=== PATIENT | female | born 1945 | race Caucasian/White ===

== ENCOUNTER → 2017-01-17 | Outpatient (CLI) | payer OTHER ==
[~2017-01-17] MED LIST: CO Q10 PO; FISH OIL PO; IRON PO; LIPITOR80 MG PO; LOPRESSOR25 MG PO; MEDROL DOSEPAK4 MG PO; NEXIUM40 MG PO; TRIMOX500 MG PO; VICODIN PO; VITAMIN A PO; VITAMIN B12 PO; VITAMIN D PO; VITAMIN E PO; VOLTAREN; XANAX0.5 MG PO
[2017-01-17 13:02] LABS: BASO % 0.3 % (0.0-1.0); EOS # 0.1 10*3/uL (0.0-0.4); EOS % 1.7 % (1.0-4.0); HEMATOCRIT 36.8 % (37.0-47.0); HEMOGLOBIN 11.2 g/dl (12.0-16.0); LYMPH # 2.6 10*3/uL (1.3-4.4); LYMPH % 35.1 % (27.0-41.0); MEAN CORPUSCULAR HGB 24.9 pg (27.0-31.0); MEAN CORPUSCULAR HGB CONC 30.4 g/dl (33.0-37.0); MEAN PLATELET VOLUME 12.1 fl (9.6-12.3); MONO # 0.5 10*3/uL (0.1-1.0); MONO % 6.4 % (3.0-9.0); NEUT # 4.2 10*3/uL (2.3-7.9); PLATELET COUNT AUTOMATED 231 10*3/uL (130-400); RED BLOOD COUNT 4.49 10*6/uL (4.10-5.10); RED CELL DISTRI WIDTH 16.9 % (0-14.5); WHITE BLOOD COUNT 7.5 10*3/uL (4.8-10.8)
[2017-01-17 13:24] LABS: ALBUMIN 3.9 gm/dl (3.1-4.5); BILIRUBIN, TOTAL 0.4 mg/dl (0.2-1.0); BUN 19 mg/dl (7-24); CARBON DIOXIDE 31 mmol/L (21-32); CHLORIDE 107 mmol/L (98-107); EST GLOM FILT AFRICAN AMERICAN > 60 ml/min; GLUCOSE 109 mg/dL (65-99); POTASSIUM 4.7 mmol/L (3.5-5.1); SGOT/AST 16 IU/L (3-35); SGPT/ALT 25 U/L (12-78); SODIUM 141 mmol/L (136-145); TOTAL PROTEIN 6.9 gm/dL (6.4-8.2)
[2017-01-17 13:33] LABS: ALKALINE PHOSPHATASE 95 U/L (45-117)
== END | disposition home or self-care (01) ==
LOC: LAB 12:37
PROVIDERS: Internal Medicine
DX: G47.19 Other hypersomnia (principal)

== ENCOUNTER 2017-03-28 15:42 | Inpatient (IN) | payer OTHER ==
[~2017-03-28] VITALS: Ht 152.4 cm; Wt 71.2 kg
--- NOTE | ~2017-03-28 | PROC NOTE ---
[place], [place] PROCEDURE NOTE [facility]: [id number] UNIT #: [id number] ROOM: 422 DOCTOR: FAISAL CHINCHILLA MD BIRTHDATE: [birth year] DOS: 03/29/2017 PREOPERATIVE DIAGNOSES: Anemia, lower gastrointestinal bleed. POSTOPERATIVE DIAGNOSES: Anemia, lower gastrointestinal bleed. PROCEDURE: Esophagogastroduodenoscopy. ENDOSCOPIST: Faisal Chinchilla MD HEALTH AND PHYSICAL EDUCATION TEACHER: MS3. ANESTHESIA: MAC. INDICATIONS: This is a 72-year-old lady with a past history of peptic ulcer disease who was admitted with anemia and shortness of breath. It was decided to take the patient to the endoscopy suite for an EGD. The procedure and its complications were explained to the patient in detail and she agreed to proceed. DESCRIPTION OF PROCEDURE: After identifying the patient, the patient was brought to the endoscopy suite and placed in the left lateral position. After time-out procedure was called, IV sedation was administered and a bite block was placed. An adult gastroscope was now introduced into the mouth and advanced sequentially into the pharynx, esophagus. The adult gastroscope was now passed into the stomach and there was no evidence of any bleeding or ulceration that could be visualized. These findings were confirmed upon retroflexion of the scope as well. The scope was then passed into the first and second parts of the duodenum. There was found to be mild duodenitis, but no active bleeding. Upon withdrawal of the scope, there was found to be small sized hiatal hernia. Again there was no bleeding seen in the entire length of the esophagus of the stomach. The scope was then withdrawn and the patient was taken to the recovery room in stable fashion. Dr. Faisal Chinchilla, the attending endoscopist, was present throughout the operative case. There were no complications. Faisal Chinchilla MD CM:PROCNOTE:PROCEDURE NOTE [id number] FAISAL CHINCHILLA MD
--- NOTE | ~2017-03-28 | PROC NOTE ---
[place], [place] PROCEDURE NOTE [id number] UN[facility] #: [id number] ROOM: 422 DOCTOR: FAISAL CHINCHILLA MD BIRTHDATE: [birth year] DOS: 03/30/2017 PREOPERATIVE DIAGNOSIS: Lower gastrointestinal bleed. POSTOPERATIVE DIAGNOSES: Lower gastrointestinal bleed, diverticulosis. PROCEDURE: Colonoscopy. ENDOSCOPIST: Faisal Chinchilla MD [employer] SUPERVISOR: MS3. ANESTHESIA: MAC. INDICATIONS: This is a 72-year-old lady admitted lower GI bleed who has a normal EGD yesterday who is here for a colonoscopy. The procedure and its complications were explained to the patient in detail preoperatively. Complications that were discussed included but were not limited to bleeding, missed lesions, colon perforations, and prolonged pain. She agreed to proceed. DESCRIPTION OF PROCEDURE: After identifying the patient, the patient was brought to the endoscopy suite and placed in the left lateral position. After IV sedation was administered, a timeout procedure was called and a digital rectal exam was performed. This was within normal limits. An adult colonoscope was now introduced into the anal canal and advanced sequentially into the rectum, sigmoid colon, descending colon, transverse colon and ascending colon up to the cecum. Upon reaching the cecum, the scope was withdrawn. Total withdrawal time was approximately 6.5 minutes. During the procedure of withdrawal, there was found to be mild sigmoid diverticulosis. Otherwise, there was no evidence of any polyps or ulceration or any blood that could be visualized in the entirety of the colon. The scope was withdrawn and the patient was taken to the recovery room in stable fashion. There were no complications. Dr. Faisal Chinchilla, the attending endoscopist, was present throughout the operating case. Faisal Chinchilla MD CM:PROCNOTE:PROCEDURE NOTE 1102 [id number] FAISAL CHINCHILLA MD
[~2017-03-28 15:42] MED LIST changes: -VITAMIN D PO; +VITAMIN D350000 UNIT PO
[2017-03-28 15:57] VITALS: BP 157/87
[2017-03-28 16:08] LABS: BASO % 0.2 % (0.0-1.0); EOS # 0.2 10*3/uL (0.0-0.4); EOS % 1.7 % (1.0-4.0); HEMOGLOBIN 6.7 g/dl (12.0-16.0); LYMPH # 2.5 10*3/uL (1.3-4.4); LYMPH % 27.5 % (27.0-41.0); MEAN CELL VOLUME 79.9 fl (81.0-99.0); MEAN CORPUSCULAR HGB 23.3 pg (27.0-31.0); MEAN CORPUSCULAR HGB CONC 29.1 g/dl (33.0-37.0); MEAN PLATELET VOLUME 11.7 fl (9.6-12.3); MONO # 0.7 10*3/uL (0.1-1.0); MONO % 7.1 % (3.0-9.0); NEUT # 5.8 10*3/uL (2.3-7.9); NEUT % 63.2 % (47.0-73.0); PLATELET COUNT AUTOMATED 243 10*3/uL (130-400); RED BLOOD COUNT 2.88 10*6/uL (4.10-5.10); RED CELL DISTRI WIDTH 17.2 % (0-14.5); WHITE BLOOD COUNT 9.2 10*3/uL (4.8-10.8)
[2017-03-28 16:16] LABS: PROTHROMBIN TIME 10.2 SECONDS (9.0-12.4)
[2017-03-28 16:24] LABS: ALBUMIN 3.6 gm/dl (3.1-4.5); ALKALINE PHOSPHATASE 96 U/L (45-117); BILIRUBIN, TOTAL 0.3 mg/dl (0.2-1.0); BUN 18 mg/dl (7-24); CARBON DIOXIDE 26 mmol/L (21-32); CHLORIDE 108 mmol/L (98-107); EST GLOM FILT AFRICAN AMERICAN > 60 ml/min; GLUCOSE 107 mg/dL (65-99); POTASSIUM 4.6 mmol/L (3.5-5.1); SGOT/AST 15 IU/L (3-35); SGPT/ALT 20 U/L (12-78); SODIUM 142 mmol/L (136-145); TOTAL PROTEIN 6.5 gm/dL (6.4-8.2)
[2017-03-28 16:26] LABS: TROPONIN I < 0.015 ng/ml (<0.045)
[2017-03-28] MEDS ORDERED: ZANTAC 150150 MG PO (18:23)
[2017-03-28 18:53] VITALS: BP 154/57
[2017-03-28 20:20] VITALS: BP 140/72
[2017-03-28 20:35] VITALS: BP 149/66
[2017-03-28 20:50] VITALS: BP 122/60
[2017-03-29] VITALS (10 sets, daily range): BP systolic 123–170; BP diastolic 60–99
[2017-03-29 02:02] LABS: BASO % 0.4 % (0.0-1.0); EOS # 0.1 10*3/uL (0.0-0.4); EOS % 1.7 % (1.0-4.0); HEMATOCRIT 31.6 % (37.0-47.0); HEMOGLOBIN 9.8 g/dl (12.0-16.0); LYMPH # 2.4 10*3/uL (1.3-4.4); LYMPH % 33.2 % (27.0-41.0); MEAN CELL VOLUME 83.6 fl (81.0-99.0); MEAN CORPUSCULAR HGB 25.9 pg (27.0-31.0); MEAN PLATELET VOLUME 11.6 fl (9.6-12.3); MONO # 0.4 10*3/uL (0.1-1.0); MONO % 5.4 % (3.0-9.0); NEUT # 4.2 10*3/uL (2.3-7.9); NEUT % 58.9 % (47.0-73.0); PLATELET COUNT AUTOMATED 195 10*3/uL (130-400); RED BLOOD COUNT 3.78 10*6/uL (4.10-5.10); RED CELL DISTRI WIDTH 17.7 % (0-14.5); WHITE BLOOD COUNT 7.2 10*3/uL (4.8-10.8)
[2017-03-29 05:44] LABS: ALBUMIN 3.2 gm/dl (3.1-4.5); CHLORIDE 110 mmol/L (98-107); SODIUM 144 mmol/L (136-145)
[2017-03-29 05:54] LABS: ALKALINE PHOSPHATASE 79 U/L (45-117); BILIRUBIN, TOTAL 1.1 mg/dl (0.2-1.0); BUN 15 mg/dl (7-24); CARBON DIOXIDE 25 mmol/L (21-32); CHOLESTEROL 143 mg/dL (<200); EST GLOM FILT AFRICAN AMERICAN > 60 ml/min; GLUCOSE 92 mg/dL (65-99); HDL CHOLESTEROL 36 mg/dl (40-60); LDL CHOLESTEROL 81 mg/dL (9-159); PHOSPHOROUS 4.4 mg/dL (2.5-4.9); SGOT/AST 15 IU/L (3-35); SGPT/ALT 16 U/L (12-78); TOTAL PROTEIN 5.9 gm/dL (6.4-8.2); TRIGLYCERIDES 130 mg/dl (<150); VLDL CHOLESTEROL 26 mg/dL (6-40)
[2017-03-29 06:00] LABS: BASO % 0.2 % (0.0-1.0); EOS # 0.1 10*3/uL (0.0-0.4); EOS % 2.1 % (1.0-4.0); HEMATOCRIT 31.4 % (37.0-47.0); HEMOGLOBIN 9.8 g/dl (12.0-16.0); LYMPH # 2.1 10*3/uL (1.3-4.4); LYMPH % 33.8 % (27.0-41.0); MEAN CELL VOLUME 83.5 fl (81.0-99.0); MEAN CORPUSCULAR HGB 26.1 pg (27.0-31.0); MEAN CORPUSCULAR HGB CONC 31.2 g/dl (33.0-37.0); MEAN PLATELET VOLUME 12.5 fl (9.6-12.3); MONO # 0.4 10*3/uL (0.1-1.0); MONO % 6.3 % (3.0-9.0); NEUT # 3.5 10*3/uL (2.3-7.9); NEUT % 57.3 % (47.0-73.0); PLATELET COUNT AUTOMATED 187 10*3/uL (130-400); RED BLOOD COUNT 3.76 10*6/uL (4.10-5.10); RED CELL DISTRI WIDTH 17.8 % (0-14.5); WHITE BLOOD COUNT 6.2 10*3/uL (4.8-10.8)
[2017-03-29 06:37] LABS: HEMOGLOBIN A1c 6.6 % (4.8-5.6)
[2017-03-29 07:48] LABS: PROTHROMBIN TIME 10.4 SECONDS (9.0-12.4)
[2017-03-29 16:48] LABS: VITAMIN D, 25-HYDROXY 38.4 ng/mL (30-100)
[2017-03-29 16:49] LABS: FOLIC ACID 12.77 ng/mL (>5.38)
[2017-03-30] VITALS (7 sets, daily range): BP systolic 116–173; BP diastolic 69–93
[2017-03-30 07:00] LABS: BASO % 0.5 % (0.0-1.0); EOS # 0.2 10*3/uL (0.0-0.4); EOS % 2.8 % (1.0-4.0); HEMATOCRIT 36.3 % (37.0-47.0); HEMOGLOBIN 11.4 g/dl (12.0-16.0); LYMPH # 1.3 10*3/uL (1.3-4.4); LYMPH % 21.5 % (27.0-41.0); MEAN CELL VOLUME 82.7 fl (81.0-99.0); MEAN CORPUSCULAR HGB CONC 31.4 g/dl (33.0-37.0); MEAN PLATELET VOLUME 11.5 fl (9.6-12.3); MONO # 0.5 10*3/uL (0.1-1.0); MONO % 8.2 % (3.0-9.0); NEUT # 4.1 10*3/uL (2.3-7.9); NEUT % 66.7 % (47.0-73.0); PLATELET COUNT AUTOMATED 216 10*3/uL (130-400); RED BLOOD COUNT 4.39 10*6/uL (4.10-5.10); RED CELL DISTRI WIDTH 17.7 % (0-14.5); WHITE BLOOD COUNT 6.1 10*3/uL (4.8-10.8)
[2017-03-30 07:29] LABS: ALBUMIN 3.7 gm/dl (3.1-4.5); BILIRUBIN, TOTAL 1.2 mg/dl (0.2-1.0); BUN 9 mg/dl (7-24); CARBON DIOXIDE 25 mmol/L (21-32); CHLORIDE 109 mmol/L (98-107); EST GLOM FILT AFRICAN AMERICAN > 60 ml/min; GLUCOSE 130 mg/dL (65-99); POTASSIUM 3.3 mmol/L (3.5-5.1); SGOT/AST 18 IU/L (3-35); SGPT/ALT 20 U/L (12-78); SODIUM 140 mmol/L (136-145); TOTAL PROTEIN 6.6 gm/dL (6.4-8.2)
[2017-03-30 07:31] LABS: ALKALINE PHOSPHATASE 90 U/L (45-117)
[2017-03-30] MEDS ORDERED: NORCO 5/325 PO (12:13)
[2017-03-30] MEDS ORDERED: REQUIP0.25 M1 PO (12:13)
[2017-03-30] MEDS ORDERED: XANAX0.25 MG PO (12:13)
== END 2017-03-30 14:37 | disposition home or self-care (01) | DRG 378 ==
LOC: ED 15:42 → 4E 17:16 → EDHOLD 17:16 → 4E 17:37
PROVIDERS: Emergency Medicine; Internal Medicine; Registered Nurse
PROC: 30233N1 Transfusion of Nonautologous Red Blood Cells into Peripheral Vein, Percutaneous Approach (ICD-10-PCS; principal; 2017-03-28)
PROC: 0DJ08ZZ Inspection of Upper Intestinal Tract, Via Natural or Artificial Opening Endoscopic (ICD-10-PCS; 2017-03-29)
PROC: 0DJD8ZZ Inspection of Lower Intestinal Tract, Via Natural or Artificial Opening Endoscopic (ICD-10-PCS; 2017-03-30)
DX: K92.1 Melena (principal); E44.0 Moderate protein-calorie malnutrition; K57.11 Diverticulosis of small intestine without perforation or abscess with bleeding; E87.8 Other disorders of electrolyte and fluid balance, not elsewhere classified; K44.9 Diaphragmatic hernia without obstruction or gangrene; D50.9 Iron deficiency anemia, unspecified; G89.29 Other chronic pain; M54.9 Dorsalgia, unspecified; I10 Essential (primary) hypertension; R07.9 Chest pain, unspecified; E78.5 Hyperlipidemia, unspecified; R73.9 Hyperglycemia, unspecified; F41.9 Anxiety disorder, unspecified; K21.9 Gastro-esophageal reflux disease without esophagitis; Z68.30 Body mass index [BMI] 30.0-30.9, adult; Z95.5 Presence of coronary angioplasty implant and graft; Z82.49 Family history of ischemic heart disease and other diseases of the circulatory system; Z88.8 Allergy status to other drugs, medicaments and biological substances; Z79.899 Other long term (current) drug therapy; K27.9 Peptic ulcer, site unspecified, unspecified as acute or chronic, without hemorrhage or perforation

== ENCOUNTER → 2017-04-13 | Outpatient (CLI) | payer OTHER ==
[~2017-04-13] MED LIST changes: +NORCO 5/325 PO; +REQUIP0.25 M1 PO; +XANAX0.25 MG PO; +ZANTAC 150150 MG PO
[2017-04-13 11:29] LABS: BASO % 0.3 % (0.0-1.0); EOS # 0.1 10*3/uL (0.0-0.4); EOS % 1.6 % (1.0-4.0); HEMOGLOBIN 11.7 g/dl (12.0-16.0); LYMPH # 1.9 10*3/uL (1.3-4.4); LYMPH % 28.1 % (27.0-41.0); MEAN CELL VOLUME 82.4 fl (81.0-99.0); MEAN CORPUSCULAR HGB 25.4 pg (27.0-31.0); MEAN CORPUSCULAR HGB CONC 30.8 g/dl (33.0-37.0); MEAN PLATELET VOLUME 11.3 fl (9.6-12.3); MONO # 0.4 10*3/uL (0.1-1.0); MONO % 5.8 % (3.0-9.0); NEUT # 4.4 10*3/uL (2.3-7.9); NEUT % 63.9 % (47.0-73.0); PLATELET COUNT AUTOMATED 266 10*3/uL (130-400); RED BLOOD COUNT 4.61 10*6/uL (4.10-5.10); RED CELL DISTRI WIDTH 16.7 % (0-14.5); WHITE BLOOD COUNT 6.9 10*3/uL (4.8-10.8)
[2017-04-13 11:56] LABS: ALBUMIN 3.8 gm/dl (3.1-4.5); ALKALINE PHOSPHATASE 116 U/L (45-117); BUN 15 mg/dl (7-24); CHLORIDE 107 mmol/L (98-107); POTASSIUM 4.5 mmol/L (3.5-5.1); SGOT/AST 15 IU/L (3-35); SGPT/ALT 20 U/L (12-78); SODIUM 140 mmol/L (136-145); TOTAL PROTEIN 7.1 gm/dL (6.4-8.2)
== END | disposition home or self-care (01) ==
LOC: LAB 03:38 → RESCLI 03:38
PROVIDERS: Internal Medicine Hospice and Palliative Medicine
DX: I10 Essential (primary) hypertension (principal); D64.9 Anemia, unspecified; K21.9 Gastro-esophageal reflux disease without esophagitis; G25.81 Restless legs syndrome; R13.10 Dysphagia, unspecified; E78.00 Pure hypercholesterolemia, unspecified; Z79.899 Other long term (current) drug therapy

== ENCOUNTER 2017-04-28 15:04 | Inpatient (IN) | payer OTHER ==
[~2017-04-28] VITALS: Ht 152.4 cm; Wt 71.3 kg
--- NOTE | ~2017-04-28 | CON ---
[place], [place] REPORT OF CONSULTATION NAME: MAYRA COTE [facility] #: [id number] UNIT #: [id number] ROOM: 428 DOCTOR: KATHY PEARL MD BIRTHDATE: [birth year] DOS: 04/30/2017 HISTORY OF PRESENT ILLNESS: The patient is a pleasant 72-year-old [place] woman who was seen by her PCP, advised to go to the Emergency Room, was noted to have severe anemia. Recently, she had upper and lower endoscopy done by Dr. Paniagua in March and was doing good. Subsequently, she was admitted and underwent upper endoscopy, which showed gastritis. She continues to have black tarry stools and consulted for further evaluation and management of anemia. PAST MEDICAL HISTORY: Upper and lower endoscopy done by Dr. Paniagua in March, status post another EGD yesterday. The patient has essential hypertension, gastroesophageal reflux disease, hiatal hernia, hyperlipidemia, lumbago, protein-calorie malnutrition, obesity, peptic ulcer disease, restless leg syndrome, vitamin deficiency. PAST SURGICAL HISTORY: Esophageal dilatation, history of coronary artery stent. SOCIAL HISTORY: No smoking, drinking, or drug abuse. FAMILY HISTORY: Father , age unknown. Mother, coronary artery disease, ____ unknown. ALLERGIES: MOBIC. MEDICATIONS: Grant, ____, Requip, Xanax as well as Nexium, vitamin D3, Zantac, ____ Lipitor, Lopressor, ____. REVIEW OF SYSTEMS: CONSTITUTIONAL: No chills. No fatigue. No fever. No loss of appetite. No night sweats. No weakness. No weight loss. HEENT: No trouble swallowing. No loss of smell. No loss of hearing. No double vision. No pain. No discharge. ENT AND RESPIRATORY: No wheeze. No sore throat. No change in voice. No hearing loss. No nose bleed. No cough. No trouble breathing through nose. No shortness of breath. No coughing up blood. No epistaxis. CARDIOVASCULAR: No chest pain. No dizziness. No irregular heartbeat. No leg edema. No pain in legs while walking. No palpitations. No shortness of breath. DERMATOLOGIC: No acne. No hives. No laceration. No mole. No rash. ENDOCRINE: No cold intolerance. No diabetes. No fatigue. No hot flashes. No polydipsia. No polyuria. No urinating frequently. No weight loss. HEMATOLOGIC AND LYMPH: No fatigue. No easy bruising. GASTROENTEROLOGIC: No change in bowel habits. No indigestion. No frequent bloating. No vomiting blood. No abdominal cramping. No nausea. No heartburn. No vomiting. No abdominal pain. No dysphagia. No diarrhea. No constipation. No blood in stool. FEMALE REPRODUCTIVE: No vaginal itching. No difficulty urinating. No heavy periods. No dyspareunia. No sexually active. No dysmenorrhea. No pelvic pain. No breast pain. No nipple discharge. No abnormal vaginal discharge. No hot flashes. [place], [place] REPORT OF CONSULTATION NAME: MAYRA COTE UNIT #: [id number] ROOM: [facility] DOCTOR: KATHY PEARL MD BIRTHDATE: [birth year] MUSCULOSKELETAL: No back pain. No muscle pain or weakness. No neck pain. No tingling/numbness. No swelling/bruising. No osteoporosis treatment. OPTHALMOLOGIC: No double vision. No diminished vision. No loss of vision. UROLOGIC: No dysuria. No frequent nighttime urination. No irregular periods. No pain with urination. No difficulty urinating. No blood in urine. No frequent urination. No urinary incontinence. NEUROLOGIC: No loss of sensation in specific body area. No vertigo. No burning pain in feet. No trouble with balance. No trouble with coordination. No loss of consciousness. No loss of feeling/power. No confusion. No headache. No tingling/numbness. PSYCHOLOGIC: No tinnitus. No headaches. No shortness of breath. No weight decrease. No nausea. No vomiting. No abdominal discomfort. No constipation. No diarrhea. No depression. No anxiety. PHYSICAL EXAMINATION: GENERAL: She is a pleasant woman in no apparent distress, feeling weak and tired. VITAL SIGNS: Stable. She is afebrile. HEENT: Oral mucosa appears intact. The external ears are normal in appearance. Nares are patent without lesions, exudates, erythema, or inflammation. Tongue is symmetrical. Uvula is midline. NECK AND THYROID: Neck supple without palpable masses. Trachea is midline. No thyromegaly. No carotid bruit or JVD. BREASTS: Normal. Nipples unremarkable. No drainage. No lumps felt on either side. HEART: Normal S1, S2, without significant murmur, rub, or gallop. LUNGS: Clear to auscultation and percussion with good air entry bilaterally. The patient is breathing easily without the use of accessory muscles. Diaphragmatic excursions are intact. ABDOMEN: No costovertebral angle tenderness. Soft. No organomegaly or masses. Nontender. No hernias present. Liver and spleen are not palpable. LYMPHATIC: No adenopathy noted in the cervical, supraclavicular, axillary, or inguinal regions. NEUROLGIC: Nonfocal. Oriented to person, place, and time. MENTAL STATUS: Appropriate for mood and affect. PERIPHERAL PULSES: No varicosities. Femoral and pedal pulses are palpable. EXTREMITIES: Without cyanosis, clubbing, or edema. No gross anomalies. LABORATORY DATA: White count 6.7, hemoglobin 8.2, hematocrit 26.9, platelet count of 198,000. Total protein 5.8, albumin 3.0. TIBC 429, iron of 33, saturation 7%. Haptoglobin is pending. B12 is 294, ferritin 6.0, folic acid is 13.42. ASSESSMENT: 1. Iron deficiency anemia secondary to blood loss. 2. The patient was taking iron pills and it caused her upset stomach. 3. Gastrointestinal bleed. 4. Gastroesophageal reflux disease. 5. Status post upper endoscopy which showed gastritis. [place], [place] REPORT OF CONSULTATION NAME: MAYRA COTE UNIT #: [id number] ROOM: [facility] DOCTOR: KATHY PEARL MD BIRTHDATE: [birth year] PLAN: The patient ____ with p.o. iron, will be starting on parenteral iron. Also, advised the cause of GI bleed needs to be addressed. No matter how much iron we give, she is going to lose her iron and hemoglobin and hematocrit are not going to rise. We will wait for Dr. Paniagua's input depending on the further intervention. In the meantime, a hemolytic workup was also ordered. I did discuss with the patient about it, seemed to understand it. Ample time was given to the patient to ask me questions. We will follow. Thanks for consulting and letting me participate in the care of this interesting patient. KATHY PEARL MD CM:CONSTR:REPORT OF CONSULTATION 1133 05/02/17 0042 interface
--- NOTE | ~2017-04-28 | O ---
[place], [place] OPERATIVE NOTE NAME: MAYRA COTE UNIT #: [id number] ROOM: 428 DOCTOR: CHRISTINA OTEROKYLER BIRTHDATE: [birth year] DOS: 04/28/2017 HISTORY OF PRESENT ILLNESS: A 72-year-old patient who has presented with anemia, status post recurrent transfusion. The patient received 2 units yesterday and 1 unit today. PAST MEDICAL HISTORY: Associated with GERD, hiatal hernia, hyperlipidemia, peptic ulcer disease, restless leg, essential hypertension. PAST SURGICAL HISTORY: Esophageal stricture post-dilation, coronary artery disease status post stent. SOCIAL HISTORY: Nonsmoker, nonalcohol consumer. FAMILY HISTORY: Noncontributory. ALLERGIES: MELOXICAM. MEDICATIONS: Medication list has been reviewed. H and H at the time of entry was 8 and 26. Followup H and H was, on the same day, 6 and 24 and her H and H remained again 7.3 and 23 post 1 unit transfusion. INR 0.9. REVIEW OF SYSTEMS: Assessed. PHYSICAL EXAMINATION: Again reassessed. PROCEDURE: Today's procedure, path of investigation is panendoscopy. PREMEDICATION: Versed and Diprivan. SCOPE: Olympus forward-viewing gastroscope Q10 video. REPORT: After putting the patient in the left lateral position and after application of lubricant to the scope, the scope was introduced. Thereafter, under direct visualization, I advanced through the length of the esophagus without difficulty. Relatively large hiatal hernia was noticed. Gastric pouch was entered. Gastritis appreciated. Duodenal bulb, second and third part no evidence of angiodysplastic lesion, no acute source of bleeding. Few small linear erosions in the hiatal sac was noticed. No biopsy obtained after photographic series. Patient extubated, tolerated the procedure well. IMPRESSION: Hiatal hernia, large. Gastritis and gastric erosions. PLAN AND DISCUSSION: The patient has had gastritis and hiatal hernia, which has been assessed on 02/01/2017. She has had colonoscopy and endoscopy done last month by Dr. Marquez and no evidence of active bleeding has been identified. This patient may benefit from outpatient capsule endoscopy to assure there is no [place], [place] OPERATIVE NOTE NAME: MAYRA COTE UNIT #: [id number] ROOM: 428 DOCTOR: CHRISTINA OTERO,KYLER BIRTHDATE: [birth year] acute pathology of the small bowel. This is going to be organized as outpatient. KYLER VASQUEZ MD CM:OPRECORD:OPERATIVE NOTE 1640 30 KYLER VASQUEZ MD 04/29/172230 interface
[2017-04-28 15:11] VITALS: BP 116/70
[2017-04-28 15:54] LABS: BASO % 0.2 % (0.0-1.0); EOS # 0.2 10*3/uL (0.0-0.4); EOS % 2.1 % (1.0-4.0); HEMATOCRIT 24.9 % (37.0-47.0); HEMOGLOBIN 7.6 g/dl (12.0-16.0); LYMPH # 2.2 10*3/uL (1.3-4.4); LYMPH % 26.3 % (27.0-41.0); MEAN CELL VOLUME 82.2 fl (81.0-99.0); MEAN CORPUSCULAR HGB 25.1 pg (27.0-31.0); MEAN CORPUSCULAR HGB CONC 30.5 g/dl (33.0-37.0); MEAN PLATELET VOLUME 11.6 fl (9.6-12.3); MONO # 0.6 10*3/uL (0.1-1.0); MONO % 7.5 % (3.0-9.0); NEUT # 5.2 10*3/uL (2.3-7.9); NEUT % 63.5 % (47.0-73.0); PLATELET COUNT AUTOMATED 248 10*3/uL (130-400); RED BLOOD COUNT 3.03 10*6/uL (4.10-5.10); RED CELL DISTRI WIDTH 17.6 % (0-14.5); WHITE BLOOD COUNT 8.2 10*3/uL (4.8-10.8)
[2017-04-28 15:58] LABS: BILIRUBIN NEGATIVE (NEGATIVE); BLOOD NEGATIVE (NEGATIVE); CLARITY CLEAR (CLEAR); COLOR YELLOW (YELLOW); GLUCOSE NEGATIVE (NEGATIVE); KETONE TRACE (NEGATIVE); LEUKO ESTERASE TRACE (NEGATIVE); NITRITE NEGATIVE (NEGATIVE); PH 5.5 (5.0-9.0); SPECIFIC GRAVITY 1.025 (1.005-1.030); UROBILINOGEN 0.2 E.U./dl (0.2-1.0)
[2017-04-28 16:03] LABS: INTERNATIONAL NORM RATIO 0.9 (2.0-3.5)
[2017-04-28 16:09] LABS: BACTERIA TRACE
[2017-04-28 16:11] LABS: ALBUMIN 3.1 gm/dl (3.1-4.5); ALKALINE PHOSPHATASE 104 U/L (45-117); BUN 18 mg/dl (7-24); CHLORIDE 108 mmol/L (98-107); CREATININE 0.67 mg/dL (0.55-1.02); LIPASE 140 U/L (73-393); POTASSIUM 3.9 mmol/L (3.5-5.1); SGOT/AST 14 IU/L (3-35); SGPT/ALT 22 U/L (12-78); SODIUM 141 mmol/L (136-145); TOTAL PROTEIN 6.1 gm/dL (6.4-8.2)
[2017-04-28 17:09] VITALS: BP 120/70
--- NOTE | 2017-04-28 17:51 | NUR ---
CCADMA 72, admitted to , under the services of HALLIE Mayorga DO with a diagnosis of ANEMIA. Chief complaint is WEAKNESS/FATIGUE. Patient arrived via bed from ER. Monitor applied. Initial assessment completed. Vital signs taken and recorded. HALLIE MAYORGA DO notified of admission to the unit. Orders received. See assessment for past medical history, medications and allergies. Patient and/or family oriented to unit. [facility] visitation policy reviewed. Clothing/patient valuable form completed. RAIZA DIAZ
--- NOTE | 2017-04-28 18:03 | NUR ---
LEFT MESSAGE WITH DR. VASQUEZ IN RE: CONSULT
[2017-04-28 20:00] VITALS: BP 130/70
--- NOTE | 2017-04-28 23:52 | NUR ---
24 HR chart check completed.
[2017-04-29] VITALS (13 sets, daily range): BP systolic 110–152; BP diastolic 59–79
[2017-04-29 07:10] LABS: BASO % 0.1 % (0.0-1.0); EOS # 0.2 10*3/uL (0.0-0.4); EOS % 2.7 % (1.0-4.0); HEMATOCRIT 23.9 % (37.0-47.0); HEMOGLOBIN 7.3 g/dl (12.0-16.0); LYMPH # 2.4 10*3/uL (1.3-4.4); LYMPH % 33.6 % (27.0-41.0); MEAN CELL VOLUME 83.3 fl (81.0-99.0); MEAN CORPUSCULAR HGB 25.4 pg (27.0-31.0); MEAN CORPUSCULAR HGB CONC 30.5 g/dl (33.0-37.0); MEAN PLATELET VOLUME 11.9 fl (9.6-12.3); MONO # 0.5 10*3/uL (0.1-1.0); MONO % 6.7 % (3.0-9.0); NEUT # 3.9 10*3/uL (2.3-7.9); NEUT % 56.5 % (47.0-73.0); PLATELET COUNT AUTOMATED 240 10*3/uL (130-400); RED BLOOD COUNT 2.87 10*6/uL (4.10-5.10); RED CELL DISTRI WIDTH 17.5 % (0-14.5)
[2017-04-29 07:17] LABS: ALKALINE PHOSPHATASE 96 U/L (45-117); BUN 11 mg/dl (7-24); CHLORIDE 110 mmol/L (98-107); CREATININE 0.64 mg/dL (0.55-1.02); IRON 19 ug/dL (50-170); PHOSPHOROUS 3.6 mg/dL (2.5-4.9); POTASSIUM 4.3 mmol/L (3.5-5.1); SGOT/AST 12 IU/L (3-35); SGPT/ALT 17 U/L (12-78); SODIUM 142 mmol/L (136-145); TOTAL IRON BINDING CAPACITY 415 ug/dl (250-450); TOTAL PROTEIN 5.8 gm/dL (6.4-8.2)
[2017-04-29 07:36] LABS: ACT PARTIAL THROMBO TIME 23.5 SECONDS (20.8-31.5); INTERNATIONAL NORM RATIO 0.9 (2.0-3.5)
--- NOTE | 2017-04-29 09:31 | NUR ---
Mid Level Practitioner in to talk to patient. Patient states lives at home with . There are few steps in the home. Physician: luis rosario [facility]acy: [facility] [facility]: none Patient's level of ADLs: INDEPENDENT Patient has working utilities: all working DME: none Follow-up physician's appointment after d/c: will be made by hospitalist nurse director upon discharge Does patient want to access PORTAL?: no Discharge plan discussed with patient, patient lives at home with , she is independent in adls and ambulation, drives, patient states she will return home and denies any home needs. JOSELITO WALDEN
[2017-04-29 18:07] LABS: BASO % 0.3 % (0.0-1.0); EOS # 0.2 10*3/uL (0.0-0.4); EOS % 2.3 % (1.0-4.0); HEMATOCRIT 29.1 % (37.0-47.0); HEMOGLOBIN 9.2 g/dl (12.0-16.0); LYMPH # 1.5 10*3/uL (1.3-4.4); LYMPH % 21.1 % (27.0-41.0); MEAN CELL VOLUME 82.9 fl (81.0-99.0); MEAN CORPUSCULAR HGB 26.2 pg (27.0-31.0); MEAN CORPUSCULAR HGB CONC 31.6 g/dl (33.0-37.0); MONO # 0.4 10*3/uL (0.1-1.0); MONO % 5.4 % (3.0-9.0); NEUT % 70.6 % (47.0-73.0); NUCLEATED RED BLOOD CELL 0.3 % (0.0-0.0); PLATELET COUNT AUTOMATED 211 10*3/uL (130-400); RED BLOOD COUNT 3.51 10*6/uL (4.10-5.10); RED CELL DISTRI WIDTH 16.5 % (0-14.5)
[2017-04-29 18:08] LABS: RETICULOCYTE % 2.26 % (0.50-2.50)
[2017-04-29 18:24] LABS: IRON 33 ug/dL (50-170); TOTAL IRON BINDING CAPACITY 429 ug/dl (250-450)
--- NOTE | 2017-04-29 19:40 | NUR ---
DR. RIVER CALLED AT THIS TIME FOR BLOOD ORDERS. PATIENT WAS TRANSFUSED WITH 1 UNIT OF PRBC EARLIER TODAY AND AT 6PM THE HEMOGLOBIN CAME UP TO 9.2. NOTIFIED DR. RIVER OF ORDER AT 6PM TO TRANSFUSE ANOTHER UNIT THAT WAS ACKNOWLEDGED BUT NEVER STARTED. DR. RIVER STATED THAT IT WAS OK TO HOLD OFF ON THE BLOOD FOR NOW SINCE THE PATIENTS HEMOGLOBIN WAS 9.2. PATIENT FOR CBC IN MORNING
[2017-04-30] VITALS: BP 116/56
[2017-04-30 05:48] LABS: RETICULOCYTE % 2.5 % (0.50-2.50)
[2017-04-30 08:00] VITALS: BP 154/75
--- NOTE | 2017-04-30 08:30 | NUR ---
Patient resting quietly with no c/o discomfort. Respirations easy and regular. Vital signs stable. No overt distress. TERRENCE VALENCIA R
[2017-04-30 09:20] LABS: BASO % 0.2 % (0.0-1.0); EOS # 0.2 10*3/uL (0.0-0.4); EOS % 3.3 % (1.0-4.0); HEMATOCRIT 26.9 % (37.0-47.0); HEMOGLOBIN 8.2 g/dl (12.0-16.0); LYMPH % 30.5 % (27.0-41.0); MEAN CELL VOLUME 84.1 fl (81.0-99.0); MEAN CORPUSCULAR HGB 25.6 pg (27.0-31.0); MEAN CORPUSCULAR HGB CONC 30.5 g/dl (33.0-37.0); MEAN PLATELET VOLUME 11.9 fl (9.6-12.3); MONO # 0.6 10*3/uL (0.1-1.0); MONO % 9.5 % (3.0-9.0); NEUT # 3.7 10*3/uL (2.3-7.9); NEUT % 56.2 % (47.0-73.0); PLATELET COUNT AUTOMATED 198 10*3/uL (130-400); RED CELL DISTRI WIDTH 16.7 % (0-14.5); WHITE BLOOD COUNT 6.7 10*3/uL (4.8-10.8)
--- NOTE | 2017-04-30 09:45 | NUR ---
PT REQUESTED A SHOWER. THIS NURSE EXPLAINED POLICY, NO SHOWER WITH HEART MONITOR. PT ASKED IF MONITOR COULD BE TAKEN OFF FOR SHOWER THEN REAPPLIED. DR KELLEY ON FLOOR AND ASKED. LABS AND VITAL REVIEWED. HE STATES TO MAKE PT MED SURG.
[2017-04-30 12:00] VITALS: BP 163/89
[2017-04-30 16:00] VITALS: BP 154/73
[2017-04-30 20:00] VITALS: BP 142/75
--- NOTE | 2017-04-30 20:30 | NUR ---
Patient resting quietly with no c/o discomfort. Respirations easy and regular. Vital signs stable. No overt distress. TERRENCE VALENCIA R
[2017-05-01] VITALS: BP 134/74
[2017-05-01 05:50] LABS: BASO % 0.3 % (0.0-1.0); EOS # 0.2 10*3/uL (0.0-0.4); EOS % 2.9 % (1.0-4.0); HEMATOCRIT 26.7 % (37.0-47.0); HEMOGLOBIN 8.2 g/dl (12.0-16.0); LYMPH # 2.4 10*3/uL (1.3-4.4); LYMPH % 32.8 % (27.0-41.0); MEAN CELL VOLUME 83.7 fl (81.0-99.0); MEAN CORPUSCULAR HGB 25.7 pg (27.0-31.0); MEAN CORPUSCULAR HGB CONC 30.7 g/dl (33.0-37.0); MEAN PLATELET VOLUME 11.6 fl (9.6-12.3); MONO # 0.7 10*3/uL (0.1-1.0); MONO % 9.4 % (3.0-9.0); NEUT # 3.9 10*3/uL (2.3-7.9); PLATELET COUNT AUTOMATED 188 10*3/uL (130-400); RED BLOOD COUNT 3.19 10*6/uL (4.10-5.10); RED CELL DISTRI WIDTH 16.9 % (0-14.5); WHITE BLOOD COUNT 7.2 10*3/uL (4.8-10.8)
[2017-05-01 08:00] VITALS: BP 142/75
--- NOTE | 2017-05-01 08:30 | NUR ---
Patient resting quietly with no c/o discomfort. Respirations easy and regular. Vital signs stable. No overt distress. TERRENCE VALENCIA R
--- NOTE | 2017-05-01 09:20 | NUR ---
PT REQUESTED AND WAS MEDICATED WITH NORCO FOR C/O LOWER BACK PAIN. CALL LIGHT IN REACH. WILL MONITOR
--- NOTE | 2017-05-01 10:10 | NUR ---
PT C/O NAUSEA. MEDICATED WITH ZOFRAN IV PER ORDERS. CALL LIGHT IN REACH. WILL MONITOR
--- NOTE | 2017-05-01 11:06 | NUR ---
PT AMBULATED TO DESK TO SHOW THIS NURSE HER HIVES ON BILAT ARMS AND LEGS. DR KELLEY IN [place]. HE WAS SHOWN. BENADRYL IV ORDERED AND GIVEN PER ORDERS. SWELLING TO BILAT HANDS NOTED. ZOFRAN ADDED TO ALLERGIES. WILL MONITOR
[2017-05-01 12:00] VITALS: BP 90/58
--- NOTE | 2017-05-01 12:00 | NUR ---
BENADRYL EFFECTIVE. HIVES RESOLVED ON LEGS.
--- NOTE | 2017-05-01 15:00 | NUR ---
DR KELLEY CALLED AND STATES HE WOULD LIKE THIS NURSE TO CALL DR PEARL AND SEE ABOUT DC PLANNING. DR PEARL CALLED RE: DISCHARGE PLANNING FOR IV INFED. DR ANGELO STATES HE WOULD LIKE TO HAVE PT IN OFFICE TOMORROW FOR IRON INFUSION. DR HIDALGO CALLED AND INFORMED.
--- NOTE | 2017-05-01 16:59 | NUR ---
DR PEARL HERE AND SEES PT. PT REQUESTED IV TO BE LEFT IN PLACE IT WAS STARTED TODAY. DR SANDERS.
--- NOTE | 2017-05-01 17:00 | NUR ---
Discharge instructions reviewed with patient/family. Patient receptive and verbalizes understanding. Follow-up care arranged. Written instructions given to patient/family. TERRENCE VALENCIA
== END 2017-05-01 17:00 | disposition home or self-care (01) | DRG 378 ==
LOC: ED 15:04 → 4E 17:09
PROVIDERS: Family Medicine; Internal Medicine; Internal Medicine Hematology & Oncology; Physician Assistant; ADMIT Internal Medicine
PROC: 0DJ08ZZ Inspection of Upper Intestinal Tract, Via Natural or Artificial Opening Endoscopic (ICD-10-PCS; principal; 2017-04-28)
PROC: 30233N1 Transfusion of Nonautologous Red Blood Cells into Peripheral Vein, Percutaneous Approach (ICD-10-PCS; 2017-04-29)
DX: K92.1 Melena (principal); E44.0 Moderate protein-calorie malnutrition; D50.0 Iron deficiency anemia secondary to blood loss (chronic); M54.5 Low back pain; K21.9 Gastro-esophageal reflux disease without esophagitis; R73.9 Hyperglycemia, unspecified; G89.29 Other chronic pain; E55.9 Vitamin D deficiency, unspecified; G25.81 Restless legs syndrome; I25.10 Atherosclerotic heart disease of native coronary artery without angina pectoris; K29.70 Gastritis, unspecified, without bleeding; I10 Essential (primary) hypertension; E78.5 Hyperlipidemia, unspecified; K27.9 Peptic ulcer, site unspecified, unspecified as acute or chronic, without hemorrhage or perforation; K44.9 Diaphragmatic hernia without obstruction or gangrene; E66.9 Obesity, unspecified; Z88.8 Allergy status to other drugs, medicaments and biological substances; Z79.899 Other long term (current) drug therapy; Z95.818 Presence of other cardiac implants and grafts; Z98.51 Tubal ligation status; Z82.49 Family history of ischemic heart disease and other diseases of the circulatory system; Z82.3 Family history of stroke; Z83.3 Family history of diabetes mellitus; Z80.9 Family history of malignant neoplasm, unspecified; Z68.30 Body mass index [BMI] 30.0-30.9, adult

== ENCOUNTER → 2017-04-28 | Outpatient (CLI) | payer OTHER ==
[2017-04-28 11:27] LABS: BASO % 0.2 % (0.0-1.0); EOS # 0.2 10*3/uL (0.0-0.4); EOS % 2.4 % (1.0-4.0); HEMATOCRIT 26.7 % (37.0-47.0); HEMOGLOBIN 8.2 g/dl (12.0-16.0); LYMPH # 2.4 10*3/uL (1.3-4.4); LYMPH % 27.8 % (27.0-41.0); MEAN CELL VOLUME 82.9 fl (81.0-99.0); MEAN CORPUSCULAR HGB 25.5 pg (27.0-31.0); MEAN CORPUSCULAR HGB CONC 30.7 g/dl (33.0-37.0); MEAN PLATELET VOLUME 11.2 fl (9.6-12.3); MONO # 0.7 10*3/uL (0.1-1.0); MONO % 8.7 % (3.0-9.0); NEUT # 5.1 10*3/uL (2.3-7.9); NEUT % 60.3 % (47.0-73.0); PLATELET COUNT AUTOMATED 286 10*3/uL (130-400); RED BLOOD COUNT 3.22 10*6/uL (4.10-5.10); RED CELL DISTRI WIDTH 17.6 % (0-14.5); WHITE BLOOD COUNT 8.5 10*3/uL (4.8-10.8)
== END | disposition home or self-care (01) ==
LOC: LAB 11:02
PROVIDERS: Internal Medicine Hospice and Palliative Medicine
DX: D64.9 Anemia, unspecified (principal)

== ENCOUNTER → 2017-05-18 | Outpatient (CLI) | payer OTHER ==
[2017-05-18 11:51] LABS: HEMATOCRIT 38.3 % (37.0-47.0); HEMOGLOBIN 11.6 g/dl (12.0-16.0); MEAN CELL VOLUME 92.1 fl (81.0-99.0); MEAN CORPUSCULAR HGB 27.9 pg (27.0-31.0); MEAN CORPUSCULAR HGB CONC 30.3 g/dl (33.0-37.0); MEAN PLATELET VOLUME 11.4 fl (9.6-12.3); PLATELET COUNT AUTOMATED 395 10*3/uL (130-400); RED BLOOD COUNT 4.16 10*6/uL (4.10-5.10); RED CELL DISTRI WIDTH 21.6 % (0-14.5); WHITE BLOOD COUNT 23.6 10*3/uL (4.8-10.8)
[2017-05-18 12:10] LABS: TOTAL CELLS COUNTED 100 #CELLS
[2017-05-18 12:11] LABS: OVALOCYTES FEW; PLATELET SUFFICIENCY NORMAL (NORMAL)
== END | disposition home or self-care (01) ==
LOC: LAB 11:32
PROVIDERS: Internal Medicine Hematology & Oncology
DX: D50.8 Other iron deficiency anemias (principal)

== ENCOUNTER → 2017-09-07 | Outpatient (CLI) | payer OTHER ==
[2017-09-07 11:18] VITALS: BP 131/97
[2017-09-07 11:26] VITALS: BP 131/97
[2017-09-07 11:46] VITALS: BP 126/60
[2017-09-07 11:48] VITALS: BP 126/60
[2017-09-07 12:27] VITALS: BP 134/66
[2017-09-07 13:20] VITALS: BP 130/85
== END ==
LOC: TRNFUSION 03:03
DX: D50.8 Other iron deficiency anemias (principal)

== ENCOUNTER → 2017-09-15 | Outpatient (CLI) | payer OTHER ==
[2017-09-15 11:39] LABS: HEMATOCRIT 32.9 % (37.0-47.0); MEAN CELL VOLUME 76.7 fl (81.0-99.0); MEAN CORPUSCULAR HGB 23.3 pg (27.0-31.0); MEAN CORPUSCULAR HGB CONC 30.4 g/dl (33.0-37.0); MEAN PLATELET VOLUME 11.3 fl (9.6-12.3); PLATELET COUNT AUTOMATED 267 10*3/uL (130-400); RED BLOOD COUNT 4.29 10*6/uL (4.10-5.10); RED CELL DISTRI WIDTH 24.7 % (0-14.5); RETICULOCYTE % 2.56 % (0.50-2.50); WHITE BLOOD COUNT 7.6 10*3/uL (4.8-10.8)
[2017-09-15 12:02] LABS: PLATELET SUFFICIENCY NORMAL (NORMAL); TOTAL CELLS COUNTED 100 #CELLS
[2017-09-15 12:03] LABS: MICROCYTOSIS SLIGHT; OVALOCYTES FEW; POLYCHROMASIA SLIGHT
[2017-09-15 12:10] LABS: IRON 47 ug/dL (50-170); TOTAL IRON BINDING CAPACITY 421 ug/dl (250-450)
[2017-09-16 08:11] LABS: HAPTOGLOBIN 001628 123 mg/dL (34-200); TRANSFERRIN 004937 332 mg/dL (200-370)
== END | disposition home or self-care (01) ==
LOC: LAB 11:03
PROVIDERS: Internal Medicine Hematology & Oncology
DX: D50.8 Other iron deficiency anemias (principal)

== ENCOUNTER → 2017-10-03 | Outpatient (CLI) | payer OTHER ==
[2017-10-03 13:17] LABS: BASO % 0.2 % (0.0-1.0); EOS # 0.1 10*3/uL (0.0-0.4); EOS % 2.3 % (1.0-4.0); HEMATOCRIT 35.3 % (37.0-47.0); HEMOGLOBIN 10.4 g/dl (12.0-16.0); LYMPH % 33.2 % (27.0-41.0); MEAN CELL VOLUME 78.3 fl (81.0-99.0); MEAN CORPUSCULAR HGB 23.1 pg (27.0-31.0); MEAN CORPUSCULAR HGB CONC 29.5 g/dl (33.0-37.0); MEAN PLATELET VOLUME 11.9 fl (9.6-12.3); MONO # 0.5 10*3/uL (0.1-1.0); MONO % 7.6 % (3.0-9.0); NEUT # 3.5 10*3/uL (2.3-7.9); NEUT % 56.5 % (47.0-73.0); PLATELET COUNT AUTOMATED 231 10*3/uL (130-400); RED BLOOD COUNT 4.51 10*6/uL (4.10-5.10); RED CELL DISTRI WIDTH 23.9 % (0-14.5); WHITE BLOOD COUNT 6.1 10*3/uL (4.8-10.8)
== END | disposition home or self-care (01) ==
LOC: LAB 12:24
PROVIDERS: Internal Medicine Hematology & Oncology
DX: D50.8 Other iron deficiency anemias (principal)

== ENCOUNTER → 2017-12-08 | Outpatient (CLI) | payer OTHER ==
[2017-12-08 12:59] LABS: BASO % 0.4 % (0.0-1.0); EOS # 0.1 10*3/uL (0.0-0.4); EOS % 1.6 % (1.0-4.0); HEMATOCRIT 31.9 % (37.0-47.0); HEMOGLOBIN 9.2 g/dl (12.0-16.0); LYMPH # 2.2 10*3/uL (1.3-4.4); LYMPH % 28.1 % (27.0-41.0); MEAN CELL VOLUME 83.9 fl (81.0-99.0); MEAN CORPUSCULAR HGB 24.2 pg (27.0-31.0); MEAN CORPUSCULAR HGB CONC 28.8 g/dl (33.0-37.0); MEAN PLATELET VOLUME 11.8 fl (9.6-12.3); MONO # 0.4 10*3/uL (0.1-1.0); MONO % 5.2 % (3.0-9.0); NEUT # 4.9 10*3/uL (2.3-7.9); NEUT % 64.3 % (47.0-73.0); PLATELET COUNT AUTOMATED 230 10*3/uL (130-400); RED CELL DISTRI WIDTH 22.5 % (0-14.5); WHITE BLOOD COUNT 7.7 10*3/uL (4.8-10.8)
== END | disposition home or self-care (01) ==
LOC: LAB 12:35
PROVIDERS: Internal Medicine Hematology & Oncology
DX: D50.8 Other iron deficiency anemias (principal)

== ENCOUNTER → 2017-12-22 | Outpatient (CLI) | payer OTHER ==
[2017-12-22 12:47] LABS: BASO % 0.3 % (0.0-1.0); EOS # 0.1 10*3/uL (0.0-0.4); EOS % 1.4 % (1.0-4.0); HEMATOCRIT 31.8 % (37.0-47.0); HEMOGLOBIN 9.5 g/dl (12.0-16.0); LYMPH # 1.7 10*3/uL (1.3-4.4); LYMPH % 28.1 % (27.0-41.0); MEAN CELL VOLUME 79.3 fl (81.0-99.0); MEAN CORPUSCULAR HGB 23.7 pg (27.0-31.0); MEAN CORPUSCULAR HGB CONC 29.9 g/dl (33.0-37.0); MEAN PLATELET VOLUME 11.4 fl (9.6-12.3); MONO # 0.4 10*3/uL (0.1-1.0); MONO % 7.1 % (3.0-9.0); NEUT # 3.7 10*3/uL (2.3-7.9); NEUT % 62.8 % (47.0-73.0); PLATELET COUNT AUTOMATED 266 10*3/uL (130-400); RED BLOOD COUNT 4.01 10*6/uL (4.10-5.10); RED CELL DISTRI WIDTH 20.8 % (0-14.5); WHITE BLOOD COUNT 5.9 10*3/uL (4.8-10.8)
== END | disposition home or self-care (01) ==
LOC: LAB 12:05
PROVIDERS: Internal Medicine Gastroenterology
DX: D64.9 Anemia, unspecified (principal)

== ENCOUNTER 2018-02-11 07:47 | Inpatient (IN) | payer OTHER ==
[~2018-02-11] VITALS: Ht 152.4 cm; Wt 70.8 kg
[2018-02-11] VITALS (15 sets, daily range): BP systolic 104–149; BP diastolic 54–88
--- NOTE | ~2018-02-11 | O ---
[place], [place] OPERATIVE NOTE NAME: MAYRA COTE UNIT #: [id number] ROOM: 506 DOCTOR: KYLER VASQUEZ MD BIRTHDATE: [birth year] DOS: 02/13/2018 INDICATIONS: A 72-year-old patient who has presented with a complaint of black tarry stool, status post multi-transfusion, anemia and improvement of the hemoglobin from 7-10. The patient has been multiple times studied no definitive source of pathology could be found to be contributing to her blood loss. PROCEDURE: Today's procedure part of investigation is panendoscopy plus biopsy. PREMEDICATION: Propofol. SCOPE: Olympus forward-viewing gastroscope Q10 video. REPORT: After putting the patient in left lateral position and application of lubricant to the scope, the scope was introduced. Thereafter, under direct visualization, advanced through the length of esophagus without difficulty. Hiatal hernia was noticed. Gastritis was appreciated. No angiodysplastic lesion in the duodenum bulb, second and third part of the duodenum identified. There is no angiodysplasia in the gastric pouch. Cardia was benign. Hiatal hernia was confirmed, which is moderate in size. The patient extubated and tolerated the procedure well. IMPRESSION: Mild gastritis, moderate size hiatal hernia. No active source of GI bleeding in upper GI tract. PLAN AND DISCUSSION: The patient is going to be fed and followed as outpatient. Thank you very much indeed. KYLER VASQUEZ MD CM:OPRECORD:OPERATIVE NOTE 1422 [id number] KYLER VASQUEZ MD 02/22/18 0758 interface
--- NOTE | ~2018-02-11 | CON ---
[place], [place] REPORT OF CONSULTATION [id number] UN[facility] #: [id number] ROOM: 506 DOCTOR: KYLER VASQUEZ MD BIRTHDATE: [birth year] DOS: 02/13/2018 HISTORY OF PRESENT ILLNESS: The patient is a 72-year-old who was presented with chief complaint of black tarry stool with repeated GI bleed episodes over prison. The patient with microcytic indices. H and H was 7-8 and 27, microcytic indices. INR 1.0. Comprehensive metabolic panel, GFR greater than 60. Electrolytes balance, liver function test normal. Chest x-ray within normal limits. Her H and H after transfusion, improved to 10 and 34. PAST MEDICAL HISTORY: Recurrent gastrointestinal bleed, coronary artery disease, gastroesophageal reflux, hyperlipidemia, borderline obesity, restless leg. PAST SURGICAL HISTORY: Esophageal dilation, coronary artery disease and stent. SOCIAL HISTORY: Nonsmoker, nonalcohol consumer. FAMILY HISTORY: Noncontributory. ALLERGIES: MOBIC, AND ZOFRAN. MEDICATIONS: At home include esomeprazole, atorvastatin, metoprolol, ranitidine, and Requip. REVIEW OF SYSTEMS: HEENT: Denies double vision, blurred vision. RESPIRATORY: Denies shortness of breath. CARDIOVASCULAR: Denies chest pain. DIGESTIVE SYSTEM: Black tarry stool. PHYSICAL EXAMINATION: GENERAL: Reveals nondistressed patient, pleasant. VITAL SIGNS: Stable. HEENT: Head normocephalic, nontraumatic. Eyes: Pupils round, reactive. Sclerae nonicteric. Conjunctivae pink. Nose: Nonobstructed, nondeviated. Mouth free of aphthae ulcer, thrush. NECK: Supple, no thyromegaly, no cervical lymphadenopathy. CHEST: Symmetric anatomy, equal expansion. No wheeze, no rhonchi. HEART: Normal sinus rhythm, no gallop, no murmur. ABDOMEN: Soft. No hepato-organomegaly. Bowel sounds present. No pulsatile mass. EXTREMITIES: No cyanosis, no pedal edema. NEUROLOGIC: Alert, oriented to time, place, person. IMPRESSION: Recurrent gastrointestinal bleed despite multiple investigations regarding source of the GI bleed, i.e., upper versus lower and pill endoscopy. None has been revealing regarding source of bleed. Due to the obvious drop in H and H. We are going to again use the opportunity to reexamine the stomach with upper endoscopy to assure if we can find any pathology that we can define. [place], [place] REPORT OF CONSULTATION NAME: MAYRA COTE UNIT #: [id number] ROOM: 506 DOCTOR: CHRISTINA OTERO,KYLER BIRTHDATE: [birth year] PLAN AND DISCUSSION: Other adjunctive diagnoses as outlined in past medical, and surgical history. KYLER VASQUEZ MD CM:CONSTR:REPORT OF CONSULTATION 1402 02/14/18 0150 interface
[2018-02-11 08:21] LABS: BASO % 0.2 % (0.0-1.0); EOS % 0.3 % (1.0-4.0); HEMATOCRIT 27.8 % (37.0-47.0); HEMOGLOBIN 7.8 g/dl (12.0-16.0); LYMPH % 10.6 % (27.0-41.0); MEAN CELL VOLUME 73.4 fl (81.0-99.0); MEAN CORPUSCULAR HGB 20.6 pg (27.0-31.0); MEAN CORPUSCULAR HGB CONC 28.1 g/dl (33.0-37.0); MEAN PLATELET VOLUME 11.6 fl (9.6-12.3); MONO # 0.4 10*3/uL (0.1-1.0); MONO % 4.5 % (3.0-9.0); NEUT # 7.7 10*3/uL (2.3-7.9); NEUT % 83.9 % (47.0-73.0); PLATELET COUNT AUTOMATED 217 10*3/uL (130-400); RED BLOOD COUNT 3.79 10*6/uL (4.10-5.10); RED CELL DISTRI WIDTH 19.9 % (0-14.5); WHITE BLOOD COUNT 9.2 10*3/uL (4.8-10.8)
[2018-02-11 08:30] LABS: ACT PARTIAL THROMBO TIME 21.9 SECONDS (20.8-31.5)
[2018-02-11 08:36] LABS: ALBUMIN 3.6 gm/dl (3.1-4.5); ALKALINE PHOSPHATASE 84 U/L (45-117); BUN 31 mg/dl (7-24); CHLORIDE 112 mmol/L (98-107); CREATININE 0.64 mg/dL (0.55-1.02); POTASSIUM 4.4 mmol/L (3.5-5.1); SGOT/AST 10 IU/L (3-35); SGPT/ALT 23 U/L (12-78); SODIUM 142 mmol/L (136-145); TOTAL PROTEIN 6.3 gm/dL (6.4-8.2)
[2018-02-11] MEDS ORDERED: REQUIP0.5 MG PO (09:24)
[2018-02-11 17:15] LABS: BASO % 0.3 % (0.0-1.0); EOS # 0.1 10*3/uL (0.0-0.4); EOS % 1.1 % (1.0-4.0); HEMATOCRIT 31.5 % (37.0-47.0); HEMOGLOBIN 9.2 g/dl (12.0-16.0); LYMPH # 2.1 10*3/uL (1.3-4.4); LYMPH % 29.5 % (27.0-41.0); MEAN CORPUSCULAR HGB 21.9 pg (27.0-31.0); MEAN CORPUSCULAR HGB CONC 29.2 g/dl (33.0-37.0); MEAN PLATELET VOLUME 11.5 fl (9.6-12.3); MONO # 0.5 10*3/uL (0.1-1.0); MONO % 6.5 % (3.0-9.0); NEUT # 4.5 10*3/uL (2.3-7.9); NEUT % 62.3 % (47.0-73.0); PLATELET COUNT AUTOMATED 192 10*3/uL (130-400); RED CELL DISTRI WIDTH 20.8 % (0-14.5); WHITE BLOOD COUNT 7.3 10*3/uL (4.8-10.8)
[2018-02-12] VITALS: BP 122/80
[2018-02-12 06:41] LABS: BASO % 0.3 % (0.0-1.0); EOS # 0.1 10*3/uL (0.0-0.4); EOS % 2.3 % (1.0-4.0); HEMATOCRIT 32.9 % (37.0-47.0); HEMOGLOBIN 9.4 g/dl (12.0-16.0); LYMPH # 1.7 10*3/uL (1.3-4.4); LYMPH % 29.7 % (27.0-41.0); MEAN CELL VOLUME 75.6 fl (81.0-99.0); MEAN CORPUSCULAR HGB 21.6 pg (27.0-31.0); MEAN CORPUSCULAR HGB CONC 28.6 g/dl (33.0-37.0); MEAN PLATELET VOLUME 12.5 fl (9.6-12.3); MONO # 0.4 10*3/uL (0.1-1.0); MONO % 6.8 % (3.0-9.0); NEUT # 3.5 10*3/uL (2.3-7.9); NEUT % 60.6 % (47.0-73.0); PLATELET COUNT AUTOMATED 200 10*3/uL (130-400); RED BLOOD COUNT 4.35 10*6/uL (4.10-5.10); RED CELL DISTRI WIDTH 21.1 % (0-14.5); WHITE BLOOD COUNT 5.7 10*3/uL (4.8-10.8)
[2018-02-12 07:01] LABS: CHLORIDE 111 mmol/L (98-107); CHOLESTEROL 163 mg/dL (<200); FREE T4 1.09 ng/dl (0.76-1.46); HDL CHOLESTEROL 28 mg/dl (40-60); LDL CHOLESTEROL 103 mg/dL (9-159); PHOSPHOROUS 3.7 mg/dL (2.5-4.9); POTASSIUM 3.8 mmol/L (3.5-5.1); SODIUM 143 mmol/L (136-145); TRIGLYCERIDES 162 mg/dl (<150); VLDL CHOLESTEROL 32 mg/dL (6-40)
[2018-02-12 07:08] LABS: THYROID STIM HORMONE (HS) 0.726 uIU/ml (0.358-4.75)
[2018-02-12 07:09] LABS: BUN 16 mg/dl (7-24)
[2018-02-12 07:56] LABS: VITAMIN D, 25-HYDROXY 20.5 ng/mL (30-100)
[2018-02-12 08:00] VITALS: BP 145/72
[2018-02-12 12:00] VITALS: BP 124/62
[2018-02-12 16:00] VITALS: BP 114/64
[2018-02-12 20:00] VITALS: BP 119/72
[2018-02-13] VITALS (9 sets, daily range): BP systolic 116–149; BP diastolic 59–98
[2018-02-13 06:45] LABS: BASO % 0.3 % (0.0-1.0); EOS # 0.2 10*3/uL (0.0-0.4); HEMATOCRIT 34.6 % (37.0-47.0); LYMPH # 2.1 10*3/uL (1.3-4.4); LYMPH % 28.6 % (27.0-41.0); MEAN CELL VOLUME 75.4 fl (81.0-99.0); MEAN CORPUSCULAR HGB 21.8 pg (27.0-31.0); MEAN CORPUSCULAR HGB CONC 28.9 g/dl (33.0-37.0); MEAN PLATELET VOLUME 12.7 fl (9.6-12.3); MONO # 0.5 10*3/uL (0.1-1.0); MONO % 7.4 % (3.0-9.0); NEUT # 4.5 10*3/uL (2.3-7.9); NEUT % 61.4 % (47.0-73.0); PLATELET COUNT AUTOMATED 243 10*3/uL (130-400); RED BLOOD COUNT 4.59 10*6/uL (4.10-5.10); RED CELL DISTRI WIDTH 21.3 % (0-14.5); WHITE BLOOD COUNT 7.3 10*3/uL (4.8-10.8)
[2018-02-14] VITALS: BP 137/55
[2018-02-14 06:46] LABS: BASO % 0.4 % (0.0-1.0); EOS # 0.1 10*3/uL (0.0-0.4); EOS % 2.5 % (1.0-4.0); HEMATOCRIT 33.6 % (37.0-47.0); HEMOGLOBIN 9.7 g/dl (12.0-16.0); LYMPH # 1.6 10*3/uL (1.3-4.4); LYMPH % 27.8 % (27.0-41.0); MEAN CELL VOLUME 75.2 fl (81.0-99.0); MEAN CORPUSCULAR HGB 21.7 pg (27.0-31.0); MEAN CORPUSCULAR HGB CONC 28.9 g/dl (33.0-37.0); MEAN PLATELET VOLUME 12.4 fl (9.6-12.3); MONO # 0.5 10*3/uL (0.1-1.0); MONO % 8.3 % (3.0-9.0); NEUT # 3.4 10*3/uL (2.3-7.9); NEUT % 60.8 % (47.0-73.0); PLATELET COUNT AUTOMATED 209 10*3/uL (130-400); RED BLOOD COUNT 4.47 10*6/uL (4.10-5.10); RED CELL DISTRI WIDTH 21.3 % (0-14.5); WHITE BLOOD COUNT 5.7 10*3/uL (4.8-10.8)
[2018-02-14 08:00] VITALS: BP 152/83
[2018-02-14] MEDS ORDERED: VITAMIN D-32000 UNIT PO (13:25)
== END 2018-02-14 14:06 | disposition home or self-care (01) | DRG 378 ==
LOC: ED 07:47 → EDHOLD 09:00 → 5E 09:00
PROVIDERS: Emergency Medicine; Family Medicine; Internal Medicine
PROC: 30233N1 Transfusion of Nonautologous Red Blood Cells into Peripheral Vein, Percutaneous Approach (ICD-10-PCS; principal; 2018-02-11)
PROC: 0DB68ZX Excision of Stomach, Via Natural or Artificial Opening Endoscopic, Diagnostic (ICD-10-PCS; 2018-02-13)
DX: K29.01 Acute gastritis with bleeding (principal); E44.0 Moderate protein-calorie malnutrition; E87.8 Other disorders of electrolyte and fluid balance, not elsewhere classified; K27.4 Chronic or unspecified peptic ulcer, site unspecified, with hemorrhage; D50.0 Iron deficiency anemia secondary to blood loss (chronic); K44.9 Diaphragmatic hernia without obstruction or gangrene; K21.9 Gastro-esophageal reflux disease without esophagitis; I10 Essential (primary) hypertension; E78.5 Hyperlipidemia, unspecified; R73.9 Hyperglycemia, unspecified; E66.09 Other obesity due to excess calories; E55.9 Vitamin D deficiency, unspecified; I25.10 Atherosclerotic heart disease of native coronary artery without angina pectoris; G25.81 Restless legs syndrome; E53.8 Deficiency of other specified B group vitamins; Z95.5 Presence of coronary angioplasty implant and graft; Z68.30 Body mass index [BMI] 30.0-30.9, adult; Z88.8 Allergy status to other drugs, medicaments and biological substances; Z79.899 Other long term (current) drug therapy; Z82.49 Family history of ischemic heart disease and other diseases of the circulatory system; Z83.3 Family history of diabetes mellitus; Z82.3 Family history of stroke

== ENCOUNTER → 2023-02-16 | Day surgery (SDC) | payer OTHER ==
[~2023-02-16] VITALS: Ht 152.4 cm; Wt 72.6 kg
[~2023-02-16] MED LIST changes: +OMEPRAZOLE20 M3 PO; +PROZAC20 MG PO; +REQUIP0.5 MG PO; +VITAMIN D-32000 UNIT PO
[2023-02-16 12:33] VITALS: BP 162/66
[2023-02-16 13:29] VITALS: BP 129/78
[2023-02-16 13:44] VITALS: BP 134/74
[2023-02-16 13:57] VITALS: BP 125/80
== END | disposition home or self-care (01) ==
LOC: SDC 02-11 14:00
PROVIDERS: ATTEND Ophthalmology
DX: H25.812 Combined forms of age-related cataract, left eye (principal); E78.00 Pure hypercholesterolemia, unspecified; G43.909 Migraine, unspecified, not intractable, without status migrainosus; F41.9 Anxiety disorder, unspecified; K21.9 Gastro-esophageal reflux disease without esophagitis; Z88.1 Allergy status to other antibiotic agents; Z79.899 Other long term (current) drug therapy

== ENCOUNTER → 2023-03-16 | Day surgery (SDC) | payer OTHER | LOC: SDC 03-10 12:30 | PROVIDERS: ATTEND Ophthalmology | DX: H26.8 Other specified cataract (principal); Z53.8 Procedure and treatment not carried out for other reasons ==

== ENCOUNTER → 2023-09-21 | Day surgery (SDC) | payer OTHER ==
[~2023-09-21] VITALS: Ht 152.4 cm; Wt 69.9 kg
[~2023-09-21] MED LIST changes: +Balanced Salt Solution 500 ML OPH SCH; +Cefuroxime Sodium 5 MG in BALANCED SALT IRRIG SOLN NO.2 0.5 ML,SYRINGE, DISPOSABLE, 10 ... IO SCH; +Midazolam Hydrochloride 2 MG/2 ML VIAL IV ONE; +OFLOXACIN 0.3% 5 ML BOTTLE ONE; +OFLOXACIN 0.3% 5 ML BOTTLE OPH SCH; +PHENYLEPHRINE/KETOROLAC 4 ML in Balanced Salt Solution 500 ML OPH SCH; +POVIDONE IODINE 5% OPHTHALMIC 30 ML BOTTLE OPH ONE; +POVIDONE IODINE 5% OPHTHALMIC 30 ML BOTTLE OPH SCH; +Phenylephrine Hydrochloride 2 ML BOT OPH ONE; +Phenylephrine Hydrochloride 2 ML BOT OPH SCH; +Proparacaine Hydrochloride 15 ML BOT OPH ONE; +Proparacaine Hydrochloride 15 ML BOT OPH SCH; +SODIUM CHLORIDE 0.9% 1,000 ML IV SCH; +SODIUM CHLORIDE 0.9% 10 ML VIAL IV ONE; +TROPICAMIDE 15 ML BOT OPH ONE; +TROPICAMIDE 15 ML BOT OPH SCH; +Tetracaine Hydrochloride 0.5% 4 ML BOT OPH ONE; +Tetracaine Hydrochloride 0.5% 4 ML BOT OPH SCH; +hydrALAZINE hydrochloride 20 MG/ML VIAL IV ONE; +prednisoLONE acetate 1% OPHTHALMIC 5 ML BOT OPH ONE; +prednisoLONE acetate 1% OPHTHALMIC 5 ML BOT OPH SCH
[2023-09-21 13:30] VITALS: BP 171/89
[2023-09-21 14:26] VITALS: BP 153/70
[2023-09-21 14:41] VITALS: BP 133/64
[2023-09-21 14:54] VITALS: BP 137/65
== END | disposition home or self-care (01) ==
LOC: SDC 08-12 14:00
PROVIDERS: ATTEND Ophthalmology
DX: H25.811 Combined forms of age-related cataract, right eye (principal); I10 Essential (primary) hypertension; H25.11 Age-related nuclear cataract, right eye; K21.9 Gastro-esophageal reflux disease without esophagitis; G43.909 Migraine, unspecified, not intractable, without status migrainosus; E78.00 Pure hypercholesterolemia, unspecified; F41.9 Anxiety disorder, unspecified; F32.A Depression, unspecified; Z88.8 Allergy status to other drugs, medicaments and biological substances; Z79.899 Other long term (current) drug therapy

== ENCOUNTER → 2025-03-29 | Outpatient (CLI) | payer OTHER ==
[~2025-03-29] MED LIST changes: -Balanced Salt Solution 500 ML OPH SCH; -Cefuroxime Sodium 5 MG in BALANCED SALT IRRIG SOLN NO.2 0.5 ML,SYRINGE, DISPOSABLE, 10 ... IO SCH; -Midazolam Hydrochloride 2 MG/2 ML VIAL IV ONE; -OFLOXACIN 0.3% 5 ML BOTTLE ONE; -OFLOXACIN 0.3% 5 ML BOTTLE OPH SCH; -PHENYLEPHRINE/KETOROLAC 4 ML in Balanced Salt Solution 500 ML OPH SCH; -POVIDONE IODINE 5% OPHTHALMIC 30 ML BOTTLE OPH ONE; -POVIDONE IODINE 5% OPHTHALMIC 30 ML BOTTLE OPH SCH; -Phenylephrine Hydrochloride 2 ML BOT OPH ONE; -Phenylephrine Hydrochloride 2 ML BOT OPH SCH; -Proparacaine Hydrochloride 15 ML BOT OPH ONE; -Proparacaine Hydrochloride 15 ML BOT OPH SCH; -SODIUM CHLORIDE 0.9% 1,000 ML IV SCH; -SODIUM CHLORIDE 0.9% 10 ML VIAL IV ONE; -TROPICAMIDE 15 ML BOT OPH ONE; -TROPICAMIDE 15 ML BOT OPH SCH; -Tetracaine Hydrochloride 0.5% 4 ML BOT OPH ONE; -Tetracaine Hydrochloride 0.5% 4 ML BOT OPH SCH; -hydrALAZINE hydrochloride 20 MG/ML VIAL IV ONE; -prednisoLONE acetate 1% OPHTHALMIC 5 ML BOT OPH ONE; -prednisoLONE acetate 1% OPHTHALMIC 5 ML BOT OPH SCH
[2025-03-29 15:22] LABS: BASO # 0.0 10*3/uL (0.0-0.1); BASO % 0.2 % (0.0-1.0); EOS # 0.1 10*3/uL (0.0-0.4); EOS % 1.0 % (1.0-4.0); MEAN CELL VOLUME 92.1 fl (81.0-99.0); MEAN CORPUSCULAR HGB 28.7 pg (27.0-31.0); MEAN PLATELET VOLUME 11.2 fl (9.6-12.3); MONO # 0.5 10*3/uL (0.1-1.0); MONO % 5.2 % (3.0-9.0); NEUT # 6.7 10*3/uL (2.3-7.9); NEUT % 72.5 % (47.0-73.0); NUCLEATED RED BLOOD CELL 0.0 % (0.0-0.0); NUCLEATED RED BLOOD CELL 0.0 10*3/uL (0.0-0.0); PLATELET COUNT AUTOMATED 256 10*3/uL (130-400); RED CELL DISTRI WIDTH 13.7 % (0-14.5)
== END | disposition home or self-care (01) ==
LOC: LAB 14:33
PROVIDERS: ATTEND Orthopaedic Surgery
DX: M25.511 Pain in right shoulder (principal)